=== PATIENT | female | born 1955 | race Caucasian/White ===

== ENCOUNTER 2019-12-09 16:47 | Observation (INO) ==
[2019-12-09 17:10] LABS: Hemoglobin 15.9 g/dL (11.5-15.4); Mean Corpuscular HGB Conc 33.1 g/dL (31.6-35.5); Mean Corpuscular Hemoglobin 29.9 pg (28.0-33.3); Mean Corpuscular Volume 90.2 fL (83.0-100.0); Mean Platelet Volume 10.7 fL (9.4-12.4); Platelet Count 269 K/mcL (140-400); Red Blood Count 5.32 M/mcL (3.82-4.97); White Blood Count 7.3 K/mcL (4.3-11.1)
[2019-12-09] MEDS ORDERED: Isovue-370 500 ML BOTTLE IVP ONE (17:10)
[2019-12-09 17:17] LABS: Prothrombin Time 11.3 Seconds (9.4-12.1)
[2019-12-09 17:19] LABS: Activated Partial Thrombo Time 32.8 Seconds (26.0-36.0)
[2019-12-09 17:27] LABS: BUN/Creatinine Ratio 23 (6-26); Blood Urea Nitrogen 18 mg/dL (8-23); Calcium 9.3 mg/dL (8.6-10.3); Carbon Dioxide 27 mEq/L (23-29); Chloride 104 mEq/L (98-107); Glucose 105 mg/dL (70-105); Osmolality,Calculated 290 (280-300); Potassium 3.7 mEq/L (3.5-5.1); Sodium 139 mEq/L (136-145); eGFR For African Americans > 60 (> 60); eGFR For Non-African Americans > 60 (> 60)
[2019-12-09 17:28] LABS: Troponin I < 0.03 ng/mL (< 0.04)
[2019-12-09] MEDS ORDERED: Acetaminophen 325 MG TABLET PO ONE (17:45)
[2019-12-09 17:59] LABS: Bilirubin,Urine Negative (Negative); Blood,Urine Negative (Negative); Clarity,Urine Clear (Clear); Color,Urine Yellow (Yellow); Glucose,Urine (UA) Normal (Normal); Ketones,Urine Negative (Negative); Leukocyte Esterase,Urine Negative (Negative); Nitrite,Urine Negative (Negative); Protein,Urine Negative (Neg-Trace); Specific Gravity,Urine 1.014 (1.010-1.025); Urobilinogen,Urine Normal (Normal)
[2019-12-09] MEDS ORDERED: Naloxone 0.4 MG/ML INJ IVP PRN (18:19)
[2019-12-09] MEDS ORDERED: Ondansetron 4 MG/2 ML VIAL IVP PRN (18:19)
[2019-12-10 02:08] LABS: Basophils # 0.1 K/mcL (0.0-0.2); Basophils % 0.7 %; Eosinophils # 0.1 K/mcL (0.0-0.6); Eosinophils % 0.8 %; Hematocrit 43.6 % (35.3-44.9); Hemoglobin 14.3 g/dL (11.5-15.4); Immature Granulocytes % 0.1 % (0-4); Lymphocytes # 2.5 K/mcL (0.6-4.6); Lymphocytes % 33.8 %; Mean Corpuscular HGB Conc 32.8 g/dL (31.6-35.5); Mean Corpuscular Hemoglobin 29.5 pg (28.0-33.3); Mean Corpuscular Volume 89.9 fL (83.0-100.0); Mean Platelet Volume 10.9 fL (9.4-12.4); Monocytes % 12.8 %; Neutrophils # 3.8 K/mcL (1.6-8.9); Platelet Count 236 K/mcL (140-400); Red Blood Count 4.85 M/mcL (3.82-4.97); Red Cell Distribution Width 12.9 % (11.5-14.5); Segmented Neutrophils % 51.8 %; White Blood Count 7.4 K/mcL (4.3-11.1)
[2019-12-10 02:33] LABS: BUN/Creatinine Ratio 22 (6-26); Blood Urea Nitrogen 17 mg/dL (8-23); Calcium 8.8 mg/dL (8.6-10.3); Carbon Dioxide 27 mEq/L (23-29); Chloride 105 mEq/L (98-107); Glucose 120 mg/dL (70-105); Magnesium 1.9 mg/dL (1.6-2.6); Osmolality,Calculated 291 (280-300); Phosphorous 3.4 mg/dL (2.7-4.5); Potassium 3.7 mEq/L (3.5-5.1); Sodium 139 mEq/L (136-145); eGFR For African Americans > 60 (> 60); eGFR For Non-African Americans > 60 (> 60)
[2019-12-10] MEDS: *HR* Enoxaparin 40 MG/0.4 ML SYRINGE SQ SCH (05:50)
[2019-12-10] MEDS: Metoprolol 100 MG TABLET PO SCH (07:41)
[2019-12-10] MEDS: Aspirin Enteric Coated 81 MG Tablet PO SCH (07:41)
[2019-12-10] MEDS ORDERED: Ketorolac 15 MG/ML VIAL IVP PRN (14:09)
[2019-12-10] MEDS ORDERED: predniSONE 20 MG TABLET PO ONE (14:41)
[2019-12-10] MEDS ORDERED: 0.9 % Sodium Chloride 1,000 ML IVC SCH (14:45)
[2019-12-10] MEDS ORDERED: *HR* LORazepam 1 MG TABLET PO SCH (21:00)
[2019-12-11] MEDS: *HR* Enoxaparin 40 MG/0.4 ML SYRINGE SQ SCH (05:41)
[2019-12-11 06:41] VITALS: BP 132/79
[2019-12-11] MEDS: Metoprolol 100 MG TABLET PO SCH (08:58)
[2019-12-11] MEDS: Aspirin Enteric Coated 81 MG Tablet PO SCH (08:58)
== END 2019-12-11 11:58 | disposition home or self-care (01) ==
LOC: 3BNU 16:47 → EMEROOARM 16:47 → SUATTDRO 18:58 → 3BNU 19:03
PROVIDERS: ADMIT Internal Medicine; ATTEND Internal Medicine